=== PATIENT | female | born 2000 | race Caucasian/White ===

== ENCOUNTER 2021-06-30 18:59 | Emergency (ER) | payer BC, SELFPAY ==
[2021-06-30 19:30] VITALS: BP 135/89; PULSE 70; RESP 17; TEMP 36.5; O2SAT 98
--- NOTE | 2021-06-30 19:31 | ED.EXTPRO ---
HPI - Extremity Problem General Chief complaint: Extremity Injury, Upper Stated complaint: pain down right arm Time Seen by Provider: 06/30/21 19:00 Source: patient and family Mode of arrival: ambulatory Limitations: no limitations History of Present Illness HPI Narrative: 21-year-old woman comes in today complaining of neck and shoulder pain that radiates down her arm. Patient states that she also has some weakness in her right hand and numbness in right hand. She states that when she woke this morning her shoulder was stiff but when she went to lift a television her pain became much worse. She denies past or recent trauma. She had a similar episode approximately 1 year ago which improved with physical therapy. MD Complaint: extremity pain Onset (ago): hour(s) Pain Consistency: constant Location: right and upper extremity Radiation: none Relieving factors: immobilization Exacerbating factors: range of motion and palpation Associated symptoms: denies other symptoms Related Data Allergies Allergy/AdvReac Type Severity Reaction Status Date / Time Penicillins Allergy Hives Verified 06/30/21 19:29 Review of Systems Constitutional: Constitutional: Denies chills and Denies fever(s) Cardiovascular: Cardiovascular: Denies chest pain and Denies radiating jaw, neck or arm pain Gastrointestinal: Gastrointestinal: Denies nausea and Denies vomiting Musculoskeletal: Musculoskeletal: Reports as per HPI, Denies back pain, Reports arthralgias and Denies joint swelling Integumentary/Breasts: Skin/Breast: Denies pruritus, Denies erythema and Denies rash Neurologic: Denies vertigo, Denies dizziness and Denies syncope [facility] Social History Social History (Updated 06/30/21 @ 19:40 by Sky Miller MD) Smoking status: Never smoker Alcohol intake: never Living arrangements: with family Exam Const: General: healthy appearing Orientation/consciousness: patient oriented x3 Limitations: no limitations Other: Moderate acute distress. 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 Distal neurovascular exam is intact. Extrem: General: normal to inspection and no clubbing, cyanosis or edema Other: Tenderness to palpation at the right trapezius, the right acromion, and anterior glenohumeral joint. there is no tenderness palpation of the spine or clavicle. Abduction to 100? at the right shoulder. Elbow shows normal range of motion. Psych: Appearance: grossly normal and well kempt Mental Status: mental status grossly normal Affect: normal affect Attitude: cooperative Thought content: Yes Normal thought content present Discharge Plan Discharge Clinical Impression: Cervical radiculopathy Right shoulder strain Qualifiers: Encounter type: initial encounter Qualified Code(s): S46.911A - Strain of unspecified muscle, fascia and tendon at shoulder and upper arm level, right arm, initial encounter Patient Disposition: Home, Self-Care Condition: Stable Instructions: Cervical Radiculopathy (ED), Shoulder Pain (ED) Additional Instructions: Follow-up with your doctor this coming week. Take NSAIDs regularly. Avoid lifting and overhead work. Prescriptions: New hydrocodone-acetaminophen 5-325 mg tablet 1 tablet PO Q6H PRN (Reason: pain) Qty: 15 RF: 0 Follow-up/Referrals: Marc,MD Geoff [Primary Care Provider] -
--- NOTE | 2021-06-30 20:09 | PC.NURSE ---
sling applied to right arm
[2021-06-30 20:10] VITALS: BP 125/80; PULSE 71; RESP 16; O2SAT 98
== END 2021-06-30 20:13 | disposition home or self-care (01) ==
PROVIDERS: Emergency Provider Emergency Medicine; PCP Family Medicine
DX: M54.12 Radiculopathy, cervical region (principal); S46.911A Strain of unspecified muscle, fascia and tendon at shoulder and upper arm level, right arm, initial encounter
CPT/HCPCS: 99283

== ENCOUNTER 2022-01-18 21:41 | Emergency (ER) | payer BC, SELFPAY ==
[2022-01-18 21:43] VITALS: BP 137/63; PULSE 83; RESP 16; TEMP 36.6; O2SAT 99
--- NOTE | 2022-01-18 22:17 | ED.GENADULT ---
HPI - General Adult General Chief complaint: Skin/Abscess/Foreign Body Stated complaint: Rash to LFA Time Seen by Provider: 01/18/22 22:06 History of Present Illness HPI narrative: Patient is a 21-year-old female who presents the emergency department with chief complaint of rash. The patient states for the last several weeks she has had a red raised itchy rash to her antecubital fossa's. Patient states she has been using her father's eczema cream and it went away for about 1 to 2 days and then subsequently returned. Patient states that there is itching to the affected area. Related Data Allergies Allergy/AdvReac Type Severity Reaction Status Date / Time Penicillins Allergy Hives Verified 06/30/21 19:29 Review of Systems Review of Systems: A 10 system review of systems was completed on the patient and is negative except for what is stated in the HPI. Nursing and ancillary documentation was reviewed. [facility] Social History Social History Smoking status: Never smoker Alcohol intake: never Exam Narrative: GENERAL: Well-appearing, well-nourished, and in no acute distress. HEAD: Normocephalic, atraumatic. EYES: PERRLA and EOMI. ENT: Nares clear, no rhinorrhea or epistaxis. Mucous membranes moist. NECK: Supple. CHEST: Clear to auscultation. No respiratory distress. HEART: Regular rate and rhythm. No murmur heard. Normal peripheral pulses. ABDOMEN: Soft, nontender, nondistended, normal active bowel sounds. EXTREMITIES: Normal range of motion. No edema. SKIN: Warm, dry, there is an erythematous rash to bilateral antecubital fossa's NEURO: No focal deficits. Alert and oriented x3. PSYCH: Normal mood and affect. Course Vital Signs Vital signs: Vital Signs Temperature 36.6 C 01/18/22 21:43 Pulse Rate 83 01/18/22 21:43 Respiratory Rate 16 01/18/22 21:43 Blood Pressure 137/63 01/18/22 21:43 Pulse Oximetry 99 01/18/22 21:43 Oxygen Delivery Room Air 01/18/22 21:43 Temperature 36.6 C 01/18/22 21:43 Pulse Rate 83 01/18/22 21:43 Respiratory Rate 16 01/18/22 21:43 Blood Pressure 137/63 07/16/22 21:43 Pulse Oximetry 99 01/18/22 21:43 Oxygen Delivery Room Air 01/18/22 21:43 Medical Decision Making Vital Signs Vital Signs: Vital Signs Temperature 36.6 C 01/18/22 21:43 Pulse Rate 83 01/18/22 21:43 Respiratory Rate 16 01/18/22 21:43 Blood Pressure 137/63 01/18/22 21:43 Pulse Oximetry 99 01/18/22 21:43 Oxygen Delivery Room Air 01/18/22 21:43 Temperature 36.6 C 01/18/22 21:43 Pulse Rate 83 01/18/22 21:43 Respiratory Rate 16 01/18/22 21:43 Blood Pressure 137/63 01/18/22 21:43 Pulse Oximetry 99 01/18/22 21:43 Oxygen Delivery Room Air 01/18/22 21:43 Discharge Plan Discharge Clinical Impression: Dermatitis Patient Disposition: Home, Self-Care Condition: Stable Instructions: Antibiotic Form, Acute Rash (ED), Dermatitis (ED) Prescriptions: New hydrocortisone valerate 0.2 % ointment 1 applic topical BID PRN (Reason: skin irritation) Qty: 15 0RF prednisone 20 mg tablet 40 mg PO DAILY 5 Days Qty: 10 0RF No Action hydrocodone-acetaminophen 5-325 mg tablet 1 tablet PO Q6H PRN (Reason: pain) Qty: 15 0RF Follow-up/Referrals: Marc,MD Geoff [Primary Care Provider] - Time of Disposition: 22:29
[2022-01-18 22:34] VITALS: BP 124/70; PULSE 78; RESP 16; TEMP 36.3; O2SAT 100
== END 2022-01-18 22:36 | disposition home or self-care (01) ==
PROVIDERS: Emergency Provider Emergency Medicine; PCP Family Medicine
DX: L30.9 Dermatitis, unspecified (principal)
CPT/HCPCS: 99283

== ENCOUNTER 2022-05-22 08:06 | Emergency (ER) | payer BC, SELFPAY ==
[2022-05-22 08:15] VITALS: BP 142/80; PULSE 105; RESP 16; TEMP 36.3; O2SAT 97
--- NOTE | 2022-05-22 08:24 | ED.NAVMDI ---
HPI - Nausea/Vomiting/Diarrhea General Chief complaint: Nausea/Vomiting/Diarrhea Stated complaint: THINKS SHE HAS THE FLU Time Seen by Provider: 05/22/22 08:23 Source: patient Mode of arrival: ambulatory Limitations: no limitations History of Present Illness HPI Narrative: this is a 22-year-old female that was advised by her father to come to the emergency department she took her antidepressant earlier this morning and felt like it got stuck in her throat and had an episode of vomiting, currently there is no vomiting no fever chills does have some nasal congestion otherwise no fevers no shortness of breath no chest pain. MD elicited complaint: nausea and vomiting Onset (ago): hour(s) Related Data Home Medications Medication Instructions Recorded Confirmed fluoxetine 40 mg capsule 40 mg PO DAILY 05/22/22 05/22/22 Allergies Allergy/AdvReac Type Severity Reaction Status Date / Time Penicillins Allergy Hives Verified 05/22/22 08:23 Review of Systems Review of Systems: All systems reviewed & are unremarkable except as noted in HPI and below PMFSH Past Medical History Medical History Depression Social History Social History Smoking status: Never smoker Alcohol intake: never Exam Const: General: healthy appearing Nutritional Appearance: well nourished Limitations: no limitations HENMT: Head: normal to inspection Face and sinus: normal facial exam Mouth: Yes Normal oral and palatal mucosa present Eyes: Conjunctivae: conjunctivae normal EOM: EOMs intact bilaterally Neck: Neck: normal visual inspection Chest: Chest palpation & inspection: normal inspection of the chest Resp: Effort & Inspection: normal respiratory effort Auscultation: clear to auscultation bilaterally Cardio: Rate: regular rate Rhythm: regular rhythm GI: GI Palp: Yes Soft to palpation Auscultation: normal bowel sounds Back/Spine/Pelvis: Back: no CVA tenderness Skin: General skin exam: normal color Rashes: no rashes Wounds: no wounds Neuro: General: patient oriented x3 Speech: normal speech Gait exam (Neuro): Normal gait present Extrem: General: normal to inspection Psych: Mental Status: mental status grossly normal Affect: normal affect Attitude: cooperative Course Course Emergency Course: currently no vomiting, reassured patient that the tablet will dissolve, and will send some anti nausea medicine to her pharmacy and a give her note to stay off of work today Vital Signs Vital signs: Vital Signs Temperature 36.3 C L 05/22/22 08:15 Pulse Rate 105 H 05/22/22 08:15 Respiratory Rate 16 05/22/22 08:15 Blood Pressure 142/80 H 05/22/22 08:15 Pulse Oximetry 97 05/22/22 08:15 Oxygen Delivery Room Air 05/22/22 08:15 Temperature 36.3 C L 05/22/22 08:15 Pulse Rate 105 H 05/22/22 08:15 Respiratory Rate 16 05/22/22 08:15 Blood Pressure 142/80 H 05/22/22 08:15 Pulse Oximetry 97 05/22/22 08:15 Oxygen Delivery Room Air 05/22/22 08:15 Critical Care Time Critical Care Time Critical Care Time: No Discharge Plan Discharge Clinical Impression: Nausea & vomiting Patient Disposition: Home, Self-Care Condition: Stable Instructions: Antibiotic Form, Acute Nausea and Vomiting (ED) Additional Instructions: advised take medicine as prescribed and follow-up with primary care if symptoms persist or worsen. Prescriptions: New ondansetron 4 mg tablet,disintegrating 4 mg PO Q6H PRN (Reason: nausea and vomiting) Qty: 10 0RF No Action fluoxetine 40 mg Capsule 40 mg PO DAILY Follow-up/Referrals: Marc,MD Geoff [Primary Care Provider] - Stand Alone Forms: Work/School Release IP Time of Disposition: :
[2022-05-22 08:40] VITALS: PULSE 101; RESP 20; TEMP 37.2; O2SAT 100
== END 2022-05-22 08:42 | disposition home or self-care (01) ==
LOC: CHSED 08:36
PROVIDERS: Emergency Provider Emergency Medicine; PCP Family Medicine
DX: R11.2 Nausea with vomiting, unspecified (principal)
CPT/HCPCS: 99283